=== PATIENT | female | born 1985 | race Asian ===

== ENCOUNTER 2022-09-21 12:46 | Outpatient (NON) | payer OTHER, SELFPAY ==
[2022-09-21 20:05] LABS: Immunochemical Fecal Occult Bl Negative (N)
[2022-09-21 20:06] LABS: IFOB Positive Control Positive
== END 2022-09-21 12:47 | disposition home or self-care (01) ==
PROVIDERS: PCP Emergency Medicine; Visit Provider Emergency Medicine
DX: K92.1 Melena (principal)
CPT/HCPCS: 82274